=== PATIENT | female | born 1990 | race Hispanic/Latino ===

== ENCOUNTER 2025-01-17 17:05 | Emergency (ER) | payer SELFPAY ==
[~2025-01-17] VITALS: Ht 152.4 cm; Wt 104.3 kg
[2025-01-17] MEDS ORDERED: KETOROLAC TROME10 MG PO (18:06)
[2025-01-17 18:26] VITALS: PULSE 75; RESP 18; TEMP 98.2; O2SAT 97
== END 2025-01-17 18:26 | disposition home or self-care (01) ==
LOC: FSED 17:08
DX: S82.61XA Displaced fracture of lateral malleolus of right fibula, initial encounter for closed fracture (principal); M25.471 Effusion, right ankle; X50.1XXA Overexertion from prolonged static or awkward postures, initial encounter; Y93.01 Activity, walking, marching and hiking; Y92.89 Other specified places as the place of occurrence of the external cause
CPT/HCPCS: 99284